=== PATIENT | male | born 1995 | race Caucasian/White ===

== ENCOUNTER 2017-06-09 17:54 | Emergency (ER) | payer BC, OTHER ==
[2017-06-09 18:20] VITALS: BP 128/80
--- NOTE | 2017-06-09 18:57 | EDM.PDOC ---
ED HPI GENERAL MEDICAL PROBLEM - General Chief Complaint: Upper Extremity Injury/Pain Stated Complaint: WORK INJURY-RIGHT SHOULDER Time Seen by Provider: 06/09/17 18:44 Source of Information: Reports: Patient History Limitations: Reports: No Limitations - History of Present Illness INITIAL COMMENTS - FREE TEXT/NARRATIVE: Patient is a 22-year-old male presents ED complaining of right generalized shoulder discomfort. Patient states while at work he was removing a fitting from a hydraulic pump. Patient slipped and fell backwards over a metal tray landing on his buttocks. Patient states he did try to catch himself with his right arm and during the process dislocated his right shoulder. It remained out of place for the approximately 1 minute and went back in on its own accord. He denies hitting his head and loss conscious. He has no pain to his head, neck, or back. He has some mild numbness to the lateral aspect of his right arm that radiates into his right pinky finger. This is decreasing. He does have a previous history of shoulder dislocation while playing football in high school. He's had no surgery on the affected arm. He has not taken anything prior to arrival for discomfort. Pain is currently a 1 out of 10. He has no previous past medical history and currently taking no medications. Right Shoulder Pain Score (Numeric/FACES): 4 - Related Data Allergies Allergy/AdvReac Type Severity Reaction Status Date / Time No Known Allergies Allergy Verified 06/09/17 18:14 Home Meds: Home Meds . [No Known Home Meds] 06/09/17 [History] Past Medical History Musculoskeletal History: Reports: Other (See Below) Other Musculoskeletal History: left hand surgery due to fractured bones; - Past Surgical History HEENT Surgical History: Reports: Oral Surgery, Tonsillectomy Social & Family History - Tobacco Use Smoking Status *Q: Current Every Day Smoker Years of Tobacco use: 2 Packs/Tins Daily: 0.5 - Caffeine Use Caffeine Use: Reports: Coffee, Energy Drinks, Soda - Recreational Drug Use Recreational Drug Use: No Review of Systems - Review of Systems Review Of Systems: ROS reveals no pertinent complaints other than HPI. ED EXAM, GENERAL - Physical Exam Exam: See Below Exam Limited By: No Limitations General Appearance: Alert, WD/WN, No Apparent Distress Ears: Hearing Grossly Normal Nose: Normal Inspection Throat/Mouth: Normal Voice, No Airway Compromise Neck: Normal Inspection, Supple Respiratory/Chest: No Respiratory Distress, No Accessory Muscle Use Cardiovascular: Normal Peripheral Pulses, Regular Rate, Rhythm Peripheral Pulses: 2+: Radial (R) Extremities: Normal Capillary Refill, Limited Range of Motion, Other (Right shoulder has some asymmetry to the AC joint in comparison to the left. Pain with palpation of the posterior/lateral aspect of the shoulder. No swelling, ecchymosis, or deformity noted. Patient had full active range of motion and passive range of motion but was cautious with overhead movements secondary discomfort to the right shoulder. Complains of mild numbness to the lateral aspect of the right arm with radiation to the pinky Do not observe any sensory changes. noted. Strength is 5 over 5. With provocative testing minimal discomfort. ) Neurological: Alert, Oriented, Normal Cognition, No Motor/Sensory Deficits Psychiatric: Normal Affect, Normal Mood Skin Exam: Warm, Dry, Intact, Normal Color Course - Vital Signs Last Recorded V/S: Last Vital Signs Temp 97.7 F 06/09/17 18:19 Pulse 88 06/09/17 18:19 Resp 20 06/09/17 18:19 BP 128/80 06/09/17 18:19 Pulse Ox 100 06/09/17 18:19 - Re-Assessments/Exams Free Text/Narrative Re-Assessment/Exam: X-ray of the right shoulder obtained. Patient's pain is 1 out of 10. Reviewed the x-ray of the right shoulder with Dr. Peña with no acute abnormalities noted. Final interpretation is pending. Will discharge patient home with instructions as documented. Departure - Departure Time of Disposition: 19:32 Disposition: Home, Self-Care 01 Condition: Good Clinical Impression: Sprain of shoulder Qualifiers: Encounter type: initial encounter Shoulder sprain type: unspecified sprain Laterality: right Qualified Code(s): S43.401A - Unspecified sprain of right shoulder joint, initial encounter Dislocation, shoulder Qualifiers: Encounter type: initial encounter Laterality: right Qualified Code(s): S43.004A - Unspecified dislocation of right shoulder joint, initial encounter - Discharge Information Instructions: Shoulder Dislocation, [place] Referrals: PCP,None [Primary Care Provider] - Rudy Marrero MD [Physician] - Forms: ED Department Discharge, ED Return to Work/School Form Additional Instructions: As discussed x-ray of the right shoulder did not reveal any acute bony abnormalities. Examination was concerning for rotator cuff injury. Thus will have you refrain lifting your arm above your head and away from her body. He will be at increased risk of dislocating her shoulder if you do this. Treatment is at this point including: Ice to affected area 4-6 times daily, 20 minutes in duration, do not place ice directly on the skin. Take ibuprofen and Tylenol and alternate fashion for pain. Refrain from any activities that cause worsening discomfort. Call and make an appointment with an orthopedic surgeon to be seen in 7-10 days. Return to ED as needed for any new or worsening symptoms.
--- NOTE | 2017-06-10 07:17 | CR ---
Right shoulder: Three views of the right shoulder were obtained. Comparison: No previous study. Glenohumeral joint and acromioclavicular joint appear unremarkable. No fracture, dislocation or other bony abnormality is seen. Impression: 1. No abnormality is identified on right shoulder study. Diagnostic code #1
== END 2017-06-09 19:46 | disposition home or self-care (01) ==
LOC: JD.ED 17:54
DX: S43.004A Unspecified dislocation of right shoulder joint, initial encounter (principal); S43.401A Unspecified sprain of right shoulder joint, initial encounter; F17.210 Nicotine dependence, cigarettes, uncomplicated; Z98.890 Other specified postprocedural states; W01.0XXA Fall on same level from slipping, tripping and stumbling without subsequent striking against object, initial encounter
CPT/HCPCS: 73030-26-RT; 73030-RT; 99283